=== PATIENT | female | born 1975 | race Caucasian/White ===

== ENCOUNTER 2016-07-11 12:48 | Emergency (ER) | payer OTHER ==
[2016-07-11] MEDS ORDERED: oxyCODONE/Acetamin 5/325 MG* TAB PO ONE (13:33)
--- NOTE | 2016-07-11 14:14 | RAD ---
Indication: RIGHT shoulder pain post fall. Comparison: None. Technique: Internal and external rotation AP and scapular Y views RIGHT shoulder Report: Normal acromioclavicular and glenohumeral joint alignment. Moderate osteophytosis at the common clavicular joint directed inferiorly. Dorsal AC joint capsular hypertrophy noted. Negative for fracture. Unremarkable soft tissue contours. IMPRESSION: No traumatic injury evident. AC joint osteoarthritis.
--- NOTE | 2016-07-11 14:46 | ED ---
Kim Grissom Matthew, scribed for Richard Couch MD on 07/11/16 at 1336 . Upper Extremity Pain - HPI Summary HPI Summary: A 41 y/o female presents to the ED with right shoulder pain since 30 minutes ago. The patient states that she tripped down a wooden indoor staircase and fell down approximately 24 stairs. Associated symptoms include right hip ecchymosis and nausea. The patient denies any other pain, head trauma, LOC, chest pain, abdominal pain, back pain, vomiting, numbness, and neck pain. The patient's pain worse with movement. SHx includes total left knee replacement in 2010. The patient did not take any medication S[employer]. - History of Current Complaint Chief Complaint: EDExtremityUpper Stated Complaint: RIGHT SHOULDER FALL DOWN 24 STAIRS Time Seen by Provider: 07/11/16 13:22 Hx Obtained From: Patient Hx Last Menstrual Period: 05/12/16 Mechanism Of Injury: Fall From Height Of: - 24 stairs Onset/Duration: Started Minutes Ago - ~30 minutes ago, Traumatic, Still Present Timing: Constant Severity Initially: Moderate Severity Currently: Moderate Pain Location: Shoulder - RT Aggravating Factor(s): Movement Alleviating Factor(s): Nothing Associated Signs & Symptoms: Positive: Bruising - right hip, Nausea. Negative: Weakness, Numbness/Tingling, Chest Pain, Back Pain, Neck Pain, Vomiting - Allergies/Home Medications Allergies/Adverse Reactions: Allergies Allergy/AdvReac Type Severity Reaction Status Date / Time Bee Venom Allergy Severe Anaphylatic Verified 07/11/16 13:01 Shock Squid Oil Allergy Anaphylatic Verified 07/11/16 13:01 Shock PMH/Surg Hx/FS Hx/Imm Hx Endocrine/Hematology History: Denies: Hx Diabetes, Hx Thyroid Disease Cardiovascular History: Denies: Hx Congestive Heart Failure, Hx Deep Vein Thrombosis, Hx Hypertension , Hx Myocardial Infarction, Hx Pacemaker/ICD Respiratory History: Denies: Hx Asthma, Hx Chronic Obstructive Pulmonary Disease (COPD), Hx Lung Cancer, Hx Pneumonia, Hx Pulmonary Embolism GI History: Denies: Hx Gall Bladder Disease, Hx Gastrointestinal Bleed, Hx Ulcer, Hx Urosepsis History: Denies: Hx Kidney Stones, Hx Renal Disease Neurological History: Denies: Hx Dementia, Hx Migraine, Hx Seizures, Hx Transient Ischemic Attacks (TIA) Psychiatric History: Reports: Hx Anxiety Denies: Hx Depression, Hx Schizophrenia, Hx Bipolar Disorder - Surgical History Surgery Procedure, Year, and Place: Left Total Knee replacement and Arthroplasty , 2012, [facility]. 2 2004 and 2009 Infectious Disease History: No Infectious Disease History: Denies: Hx Clostridium Difficile, Hx Hepatitis, Hx Human Immunodeficiency Virus (HIV), Hx of Known/Suspected MRSA, Hx Shingles, Hx Tuberculosis, Hx Known/ Suspected VRE, Hx Known/Suspected VRSA, History Other Infectious Disease, Traveled Outside the [place] in Last 30 Days - Family History Known Family History: Positive: Other - ANX - Social History Alcohol Use: None Substance Use Type: Reports: Prescribed Substance Use Comment - Amount & Last Used: klonopin 0.5 mg at bedtime Smoking Status (MU): Former Smoker Type: Cigarettes Amount Used/How Often: occasional Have You Smoked in the Last Year: Yes Review of Systems Constitutional: Negative Eyes: Negative ENT: Negative Cardiovascular: Negative Negative: Chest Pain Respiratory: Negative Positive: Nausea. Negative: Abdominal Pain, Vomiting Genitourinary: Negative Positive: Myalgia - RT shoulder Positive: Bruising - RT Hip Neurological: Negative Negative: Weakness, Numbness Psychological: Normal All Other Systems Reviewed And Are Negative: Yes Physical Exam - Summary Physical Exam Summary: The patient is well-nourished in no acute distress and in no acute pain. The skin is warm and dry and skin color reflects adequate perfusion. HEENT: The head is normocephalic and atraumatic. The pupils are equal and reactive. The conjunctivae are clear and without drainage. Nares are patent and without drainage. Mouth reveals moist mucous membranes and the throat is without erythema and exudate. The external ears are intact. The ear canals are patent and without drainage. The tympanic membranes are intact. No scott sign, no raccoon sign, or no hemotympanum. Neck is supple with full range of motion and non-tender. There are no carotid bruits. There is no neck vein distension.The patient does not have reproducible neck pain. Respiratory: Chest is non-tender with no rib tenderness. Lungs are clear to auscultation and breath sounds are symmetrical and equal. Cardiovascular: Heart is regular rate and rhythm. There is no murmur or rub auscultated. There is no peripheral edema and pulses are symmetrical and equal. Abdomen: The abdomen is soft and non-tender. There are normal bowel sounds heard in all four quadrants and there is no organomegaly palpated. Musculoskeletal: There is no back pain noted. There is good capillary refill. There is no calf tenderness elicited. No tenderness of the clavicles bilaterally. No thoracic-lumbar spinal tenderness noted. Tenderness in the right femur, No KEN of the right hip, no knee effusion, good pulses distally. The right arm has marked tenderness in the right humorous, no crepitus, no deformities, good pulses distally, neurovascular intact distally as well. No reproducible pain over hand wrist , elbow, or forearm Neurological: Patient is alert and oriented to person, place and time. The patient has symmetrical motor strength in all four extremities. Cranial nerves are grossly intact. Deep tendon reflexes are symmetrical and equal in all four extremities. Psychiatric: The patient has an appropriate affect and does not exhibit any anxiety or depression. Triage Information Reviewed: Yes Vital Signs On Initial Exam: Initial Vitals Temp Pulse Resp BP Pulse Ox 98.3 F 78 20 117/69 100 07/11/16 12:50 07/11/16 12:50 07/11/16 12:50 07/11/16 12:50 07/11/16 12:50 Vital Signs Reviewed: Yes Diagnostics - Vital Signs Vital Signs Temp Pulse Resp BP Pulse Ox 07/11/16 12:50 98.3 F 78 20 117/69 100 - Laboratory Lab Statement: Any lab studies that have been ordered have been reviewed, and results considered in the medical decision making process. - Radiology RT Shoulder XR Xray Interpretation: No Acute Changes - IMPRESSION: No traumatic injury evident. AC joint osteoarthritis. Radiology Interpretation Completed By: Radiologist Course/Dx - Course Assessment/Plan: A 41 y/o female presents to the ED with right shoulder pain since 30 minutes ago after falling down approximately 24 stairs. The patient denies any other pain, head trauma, LOC, chest pain, abdominal pain, back pain, vomiting, numbness, and neck pain. RT shoulder XR shows no traumatic injury evident. The patient will be discharged home and follow-up with her PCP. - Diagnoses Differential Diagnosis/HQI/PQRI: Positive: Contusion, Fracture (Closed), Other - dislocation, a/c separation, rotator cuff injury Provider Diagnoses: Shoulder contusion Discharge - Discharge Plan Condition: Stable Disposition: HOME Prescriptions: oxyCODONE/Acetamin 5/325 MG* [Percocet 5/325 TAB*] 1 tab PO Q6H PRN #20 tab MDD 4 PRN Reason: pain Patient Education Materials: Oxycodone/Acetaminophen (By mouth), Contusion in Adults (ED) Referrals: Cheri Burden MD [Medical Doctor] - 4 Days Additional Instructions: Please follow-up with Dr. Burden in 4 days. The documentation as recorded by the Kim palomo Matthew accurately reflects the service I personally performed and the decisions made by , Richard Couch MD.
[2016-07-11 14:53] VITALS: BP 114/67
== END 2016-07-11 14:52 | disposition home or self-care (01) ==
LOC: ED 12:48
DX: S40.011A Contusion of right shoulder, initial encounter (principal); M25.511 Pain in right shoulder; S70.01XA Contusion of right hip, initial encounter; W10.9XXA Fall (on) (from) unspecified stairs and steps, initial encounter; Y93.9 Activity, unspecified; Y92.9 Unspecified place or not applicable; Y99.9 Unspecified external cause status; R11.0 Nausea
CPT/HCPCS: 99283; A9270-GY

== ENCOUNTER 2016-08-13 06:27 | Day surgery (SDC) | payer OTHER ==
[~2016-08-13 06:27] MED LIST: Buffered Lidocaine 1% SYR 3ML* 3 ML/SYR SYRINGE INTRADERM ONE; Famotidine IV* 10 MG/ML 2 ML (20 mg) IV ONE; Gabapentin CAP(*) 300 MG PO ONE; celeCOXIB CAP* 200 MG PO ONE
[2016-08-13] MEDS ORDERED: celeCOXIB CAP* 100 MG ONE (06:28)
[2016-08-13] MEDS ORDERED: Gabapentin CAP(*) 300 MG ONE (06:28)
[2016-08-13] MEDS ORDERED: Famotidine IV* 10 MG/ML 2 ML (20 mg) ONE (06:28)
[2016-08-13] MEDS ORDERED: ceFAZolin 2 GM PREMIX (*) 2 GM/50 ML BAG IVPB ONE (06:28)
[2016-08-13 06:31] LABS: Manual Entry Verification CAR0052; UR Preg Internal Control QC Line Present; UR Preg Kit Lot# 6060104
[2016-08-13] MEDS ORDERED: Ondansetron INJ* 2 MG/ML VIAL ONE ×2 (07:00→11:53)
[2016-08-13] MEDS ORDERED: Ketorolac INJ* 30 MG/ML 1 ML VIAL ONE (07:00)
[2016-08-13] MEDS ORDERED: ROPIVACAINE 5 MG/ML 30 ML BTL (0.5%) ONE (07:00)
[2016-08-13] MEDS ORDERED: Dexamethasone IV* 4 MG/ML 1 ML (4 MG) ONE (07:00)
[2016-08-13] MEDS ORDERED: Lidocaine 2% PF * 5 ML VIAL ONE ×2 (07:00→07:49)
[2016-08-13] MEDS ORDERED: Propofol* 10 MG/ML 20 ML BTL IV PUSH ONE ×2 (07:00→07:49)
[2016-08-13] MEDS ORDERED: fentaNYL* 50 MCG/ML 5 ML VIAL (250 MCG VIAL) ONE (07:01)
[2016-08-13] MEDS ORDERED: Midazolam* 1 MG/ML 5 ML VIAL (5 MG) ONE (07:01)
[2016-08-13] MEDS ORDERED: Rocuronium* 10 MG/ML VIAL ONE (07:01)
[2016-08-13] MEDS ORDERED: KETAMINE HCL* 50 MG/ML 10 ML VIAL ONE ×2 (07:01→07:49)
[2016-08-13] MEDS ORDERED: EPINEPHrine AMP 1 MG/ML ONE (07:11)
[2016-08-13] MEDS ORDERED: Bupivacaine 0.5% W/EPI SDV* 30 ML VIAL ONE (08:21)
[2016-08-13] MEDS ORDERED: fentaNYL* 50 MCG/ML 2 ML VIAL (100 MCG VIAL) IV PRN (08:59)
[2016-08-13] MEDS ORDERED: oxyCODONE/Acetamin 5/325 MG* TAB PO PRN (08:59)
[2016-08-13] MEDS ORDERED: Ondansetron INJ* 2 MG/ML VIAL IV PRN (08:59)
[2016-08-13] MEDS ORDERED: DiMENhydriNATE IV* 50 MG/ML VIAL IV PUSH PRN (08:59)
[2016-08-13] MEDS ORDERED: HYDROmorphone INJ* 1 MG/ML CARPUJECT SYRINGE IV PRN (08:59)
[2016-08-13] MEDS ORDERED: HYDROmorphone INJ* 1 MG/ML CARPUJECT SYRINGE ONE (09:28)
[2016-08-13] MEDS ORDERED: DiMENhydriNATE IV* 50 MG/ML VIAL ONE (11:54)
[2016-08-13] MEDS ORDERED: fentaNYL* 50 MCG/ML 2 ML VIAL (100 MCG VIAL) ONE (12:53)
[2016-08-13 13:47] VITALS: BP 123/78
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
== END 2016-08-13 14:10 | disposition home or self-care (01) ==
LOC: OR 06:27
PROVIDERS: ATTEND Orthopaedic Surgery
DX: S46.011A Strain of muscle(s) and tendon(s) of the rotator cuff of right shoulder, initial encounter (principal); M75.41 Impingement syndrome of right shoulder; M19.011 Primary osteoarthritis, right shoulder; F17.210 Nicotine dependence, cigarettes, uncomplicated; W10.9XXA Fall (on) (from) unspecified stairs and steps, initial encounter; Y92.009 Unspecified place in unspecified non-institutional (private) residence as the place of occurrence of the external cause
CPT/HCPCS: 81025; A9270-GY; J0171; J0690; J1100; J1170; J1240; J1885; J2250; J2405; J2704; J2795; J3010

== ENCOUNTER 2016-10-23 07:26 | Emergency (ER) | payer OTHER ==
[2016-10-23 07:44] VITALS: BP 107/68
--- NOTE | 2016-10-23 09:04 | UC ---
Marlena Grissom Auryana, scribed for [facility] on 10/23/16 at 0840 . Complaint Female HPI - HPI Summary HPI Summary: IN ROOM NOTE: 41 year old female presents with central suprapubic abdominal pressure over the bladder that has become progressively worse. She also has pain with intercourse and decreased urine output with increased pressure over the bladder - sharp, "shooting" pains that radiate down the sides. She reports previous low back pain but denies any now. She denies any fever, chills, dysuria, burning with urination, or any vaginal discharge/bleeding. She states normal eating and drinking habits. She has had 2 prior episodes of U.T.I. with cipro treatment - tolerated well. PMHx is significant for miscarriage x2 (most recent - last year - Dr. Braswell- reports possibility of "slanted uterus"- pelvic exam 7 months ago), anxiety, and PTSD. No prior hospitalizations for any pulmonary, cardiac, or urology problems. FHx is significant for lung cancer. She reports marijuana use for PTSD and anxiety. She denies any tobacco use. 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 MD NOTE: Vital signs stable, pulse ox 100, 3/10 abdominal and lower back discomfort. Patient visit history notes U.T.I. on 10/12/16 but is otherwise none contributory to current complaint. Patient was on 3 days of Cipro 500 mg BID. NURSES NOTE: WAS SEEN HERE ON October TREATED FOR UTI WITH CIPRO. STATES STILL HAVING "STRANGE PRESSURE" IN ABDOMEN, AND LOWER BACK. HURTS IN PELVIS AREA WHEN COUGHING. HAS BEEN URINATING MORE FREQUENTLY THAN USUAL BUT LESS THAN WHEN SHE WAS HERE ON THE . DENIES ANY DISCHARGE. - History Of Current Complaint Chief Complaint: UCGU Stated Complaint: UTI SYMPTOMS Time Seen by Provider: 10/23/16 07:57 Hx Obtained From: Patient Hx Last Menstrual Period: 10/03/16 Onset/Duration: Gradual Onset, Still Present Timing: Constant Severity Initially: Mild Severity Currently: Mild Pain Intensity: 3 Pain Scale Used: 0-10 Numeric Radiates to: down the sides of her ABD Character: Sharp - and shooting Aggravating Factor(s): Marianna - pain with intercourse Associated Signs And Symptoms: Negative: Fever, Back Pain - none now but reports previously, Vaginal Bleeding/Discharge, Vaginal Discharge, Nausea, Vomiting(# Of Episodes =) Related Hx: Similar Episode/Dx as: - SEE HPI - Allergies/Home Medications Allergies/Adverse Reactions: Allergies Allergy/AdvReac Type Severity Reaction Status Date / Time Bee Venom Allergy Severe Anaphylatic Verified 08/13/16 06:41 Shock Squid Oil Allergy Severe Anaphylatic Verified 08/13/16 06:41 Shock PMH/Surg Hx/FS Hx/Imm Hx - Additional Past Medical History Additional PMH: U.T.I., miscarriage x2 Endocrine History Of: Denies: Diabetes, Thyroid Disease, Hyperthyroidism, Hypothyroidism, Dyslipidemia Cardiovascular History Of: Denies: Cardiac Disorders, Hypertension, Pacemaker/ICD, Myocardial Infarction , Congestive Heart Failure, Atrial Fibrillation, Deep Vein Thrombosis, Bleeding Disorders Respiratory History Of: Denies: COPD, Asthma, Bronchitis, Pneumonia, Pulmonary Embolism GI/ History Of: Denies: Gastroesophageal Reflux, Ulcer, Gastrointestinal Bleed, Gall Bladder Disease, Kidney Stones, Diverticulitis, Renal Disease, Urosepsis Neurological History Of: Denies: TIA, CVA, Dementia, Seizures, Migraine Psychological History Of: Reports: Anxiety, Post Traumatic Stress Disorder Denies: Depression, Bipolar Disorder, Schizophrenia Cancer History Of: Denies: Lung Cancer, Colorectal Cancer, Breast Cancer, Prostate Cancer, Cervical Cancer - Surgical History Surgical History: Yes Surgery Procedure, Year, and Place: LEFT KNEE ARTHROSCOPY- 1988- [place]. LEFT KNEE ARTHROSCOPY- 2001, 2005- [place]. Left Total Knee replacement and Arthroplasty, 2011, [facility]. 2004 and 2009. ROTATOR CUFF RIGHT- AUGUST 2016 - Family History Known Family History: Positive: Other - LUNG CANCER - Social History Occupation: Employed Full-time Lives: With Family - Alcohol Use: None Substance Use Type: Marijuana, Prescribed Substance Use Comment - Amount & Last Used: klonopin 0.5 mg at bedtime, OCCASIONAL MARIJUANA USE-10/23/16 Smoking Status (MU): Former Smoker Type: Cigarettes Amount Used/How Often: APPROX 5 CIGS/DAY FOR 4 YRS Have You Smoked in the Last Year: No When Did the Patient Quit Smoking/Using Tobacco: 2001 Household Exposure Type: Cigarettes - Immunization History Most Recent Influenza Vaccination: 04/2014 Most Recent Tetanus Shot: 2011 Review of Systems Constitutional: Negative Skin: Negative Eyes: Negative ENT: Negative Respiratory: Negative Cardiovascular: Negative Gastrointestinal: Negative Genitourinary: Other - DECREASED OUTPUT, PRESSURE OVER BLADDER/SUPRAPUBIC, PAIN WITH INTERCOURSE Motor: Negative Neurovascular: Negative Musculoskeletal: Negative Neurological: Negative Psychological: Negative All Other Systems Reviewed And Are Negative: Yes Physical Exam Triage Information Reviewed: Yes Appearance: Well-Appearing, No Pain Distress, Well-Nourished Vital Signs: Initial Vital Signs Temp 97.9 F 10/23/16 07:37 Pulse 86 10/23/16 07:37 Resp 18 10/23/16 07:37 BP 107/68 10/23/16 07:37 Pulse Ox 100 10/23/16 07:37 Vital Signs Reviewed: Yes Eyes: Positive: Conjunctiva Clear ENT: Positive: Hearing grossly normal, Pharynx normal, TMs normal Neck: Positive: Supple, Nontender, No Lymphadenopathy Respiratory: Positive: Chest non-tender, Lungs clear, Normal breath sounds, No respiratory distress Cardiovascular: Positive: RRR, No Murmur Abdomen Description: Positive: Nontender, No Organomegaly, Soft, Other: - MILD BLADDER DISCOMFORT WITH PALPATION. Negative: CVA Tenderness (R), CVA Tenderness (L) Bowel Sounds: Positive: Present Musculoskeletal: Positive: Strength Intact, Other: - QUIÑONES Neurological: Positive: Alert Psychological: Positive: Age Appropriate Behavior Complaint Female Dx - Course Course Of Treatment: 41 year old female returns for bladder discomfort. She denies vaginal discharge. Previous pelvic exam 7 month ago s/p miscarriage. She understands that further work up is most should be done with [facility] Her UA shows trace blood - no CVA tenderness- and is WBC negative. This could be a resolving U.T.I. or an intrinsic condition of bladder itself requiring urology follow up. I discussed this possibility with the patient. Will start her on Cipro for 7 days. Patient understands she might need an ultrasound to diagnose her problem if discomfort doesn't resolve. All medications in chart were reviewed. - Differential Dx/Diagnosis Differential Diagnosis/HQI/PQRI: Urinary Tract Infection, Other - pyelonephritis ; cystitis from non-infectious cause Provider Diagnoses: URINARY TRACT INFECTION Discharge - Discharge Plan Condition: Stable Disposition: HOME Prescriptions: Ciprofloxacin TAB* [Cipro Tab*] 500 mg PO BID #14 tab MDD 2 Patient Education Materials: Urinary Tract Infection in Women (ED) Referrals: Ramirez PETE,Amr [Primary Care Provider] - Additional Instructions: Thank you for completing our My[employer] survey. WE DISCUSSED: This feeling could be a not yet fully resolved BLADDER INFECTION. It could also be related to a bladder condition that might require looking into the bladder by a urologist. If this condition persists after this round of antibiotic treatment, call your doctor for referral to UROLOGY. [facility] or your woodworking shop laborer can also follow up on any further testing to vaginal discharge or bleeding. An ultrasound might be useful at that time. Call us for any questions or concerns. The documentation as recorded by the Marlena palomo Auryana accurately reflects the service I personally performed and the decisions made by me, Prashanth Aguirre MD.
== END 2016-10-23 08:43 | disposition home or self-care (01) ==
LOC: UCEAST 07:26
DX: N39.0 Urinary tract infection, site not specified (principal); B96.89 Other specified bacterial agents as the cause of diseases classified elsewhere
CPT/HCPCS: 81003; 99212; G0463

== ENCOUNTER 2018-03-05 07:37 | Emergency (ER) | payer OTHER ==
--- OUTSIDE RECORDS SUMMARY | 2018-03-05 07:44 | XMS REPORT ---
:1975 External Reference #:[id number] Author Organization [employer] Address [address] [place] [place] [address] Phone [phone] Care Team Providers Name Role Phone Bill Guzmán MD Primary Care Physician Unavailable Payers Type Date Identification Numbers Payment Provider Subscriber Commercial Policy Number: [id number] Tha Andersen PayID: [id number] [address] [place] [address] Commercial Effective: 2016 Policy Number: [id number] Tha Andersen Expires: 2018 Group Number: [id number] [address] PayID: [id number] [place] [address] Medigap Part B Expires: 2018 Policy Number: [id number] Medicaid Jazmin Andersen Group Name: 1 1 [address] PayID: [id number] [place] [address] Problems Description No Information Social History Type Date Description Comments Smoking Patient has never smoked Allergies, Adverse Reactions, Alerts Date Description Reaction Status Severity Comments 01/27/2017 NKDA active Medications Medication Date Status Form Strength Qnty SIG Indications Ordering Provider Bupropion HCL Active Tablets ER 150mg 1 by Unknown ER (SR) 000 12HR mouth every day Clonazepam 0 Active Tablets 0.5mg Unknown 000 Oxycontin Hx Tab ER 12H 10mg 6tabs take 1 by Irvin Miles - Abuse-Det mouth two Debby, times a MD Miles day. Do not take with clonazepa m. Keflex Hx Capsules 500mg 21caps take 1 Irvin Miles - tab by Debby, mouth 3 MD Miles times a day x 7 days until finished. Aspirin Ec Hx Tablets DR 325mg 30tabs take 2 Irvin Alva 017 - tabs by Debby, mouth MD Miles every day x 14 days. with food. Percocet Hx Tablets 5-325mg 45tabs 1 tabs by Irvin Miles - mouth Debby, every 4 MD Miles hours as needed do not fill until 09/02/16 Shower Chair Hx Shower Irvin Miles - chair Debby, MD Miles Naproxen Hx Tablets 500mg 90tabs 1 po bid S46.011A Irvin Alva 017 - prn pain Debby, MD Miles Medications Administered in Office Medication Date Status Form Strength Qnty SIG Indications Ordering Provider Depomedrol Administered Injection Irvin Alva 40MG Akosua Guardado MD Vital Signs Date Vital Result Comment 02/16/2018 Height 71 inches 5'11" Heart Rate 89 /min BP Systolic 122 mmHg BP Diastolic 82 mmHg Respiratory Rate 18 /min Pain Level 8 01/03/2018 Height 71 inches 5'11" Weight 230.00 lb Heart Rate 76 /min BP Systolic 138 mmHg BP Diastolic 76 mmHg Respiratory Rate 12 /min Pain Level 6 BMI (Body Mass Index) 32.1 kg/m2 07/19/2017 Height 71 inches 5'11" Heart Rate 73 /min BP Systolic 126 mmHg BP Diastolic 78 mmHg Respiratory Rate 16 /min Body Temperature 97.7 F Pain Level 5 01/27/2017 Height 71 inches 5'11" Weight 220.00 lb BP Systolic 118 mmHg BP Diastolic 72 mmHg Respiratory Rate 16 /min Pain Level 3 BMI (Body Mass Index) 30.7 kg/m2 12/16/2016 Height 71 inches 5'11" Weight 220.00 lb Heart Rate 83 /min Respiratory Rate 16 /min Pain Level 4 BMI (Body Mass Index) 30.7 kg/m2 11/02/2016 Height 71 inches 5'11" Weight 220.00 lb Heart Rate 73 /min BP Systolic 108 mmHg BP Diastolic 69 mmHg Respiratory Rate 15 /min Body Temperature 97.8 F Pain Level 4 BMI (Body Mass Index) 30.7 kg/m2 09/21/2016 Height 71 inches 5'11" Weight 220.00 lb Heart Rate 76 /min BP Systolic 138 mmHg BP Diastolic 80 mmHg Respiratory Rate 16 /min Pain Level 5 BMI (Body Mass Index) 30.7 kg/m2 09/13/2016 Height 71 inches 5'11" Weight 220.00 lb Heart Rate 76 /min BP Systolic 130 mmHg BP Diastolic 87 mmHg Respiratory Rate 16 /min BMI (Body Mass Index) 30.7 kg/m2 08/24/2016 Height 71 inches 5'11" Weight 220.00 lb BP Systolic 120 mmHg BP Diastolic 78 mmHg Respiratory Rate 16 /min BMI (Body Mass Index) 30.7 kg/m2 08/03/2016 Height 71 inches 5'11" Weight 220.00 lb Heart Rate 72 /min Respiratory Rate 18 /min Pain Level 4 BMI (Body Mass Index) 30.7 kg/m2 07/13/2016 Height 71 inches 5'11" Weight 220.00 lb Heart Rate 64 /min BP Systolic 118 mmHg BP Diastolic 74 mmHg Respiratory Rate 14 /min Pain Level 7 BMI (Body Mass Index) 30.7 kg/m2 Results Test Date Test Result H/L Range Note Laboratory test finding 08/13/2016 (HCG) Urine Negative Negative 1 1 If is still suspected, please repeat test after 48 to 72 hours. This test detects intact HCG only and is indicated for the early detection of . Procedures Date CPT Code Description Status 07/19/2017 59707 Inject/Drain Joint/Bursa Major W/O US Completed 08/13/2016 33160 Arthroscopy Shoulder,W/Rotator Cuff Repair Completed 08/13/2016 09574 Arthroscopy Shoulder,W/Rotator Cuff Repair Completed 08/13/2016 58898 Arthroscopy,Shoulder Decompression Of Subacromial Space Completed W/Acromio 08/13/2016 06458 Arthroscopy,Shoulder Decompression Of Subacromial Space Completed W/Acromio 08/13/2016 69634 Arthroscopy,Shoulder,Distal Claviculectomy Incl Dist Completed Articular SR 08/13/2016 92293 Arthroscopy,Shoulder,Distal Claviculectomy Incl Dist Completed Articular SR Encounters Type Date Location Provider CPT E/M Dx Office Visit 01/03/2018 [facility], [address]19 M75.52 1:30p Alison PETE M75.22 S46.012D G56.01 M75.42 Office Visit 07/19/2017 9:00a [facility], [address]3464 M75.52 Alison PETE S46.112A M75.22 Office Visit 01/27/2017 8:00a [facility] 16481 S46.011D Of Alison Guaraddo MD Office Visit 12/16/2016 11:30a [facility] 28490 S46.011D Of [facility] Guardado MD M75.41 Office Visit 09/13/2016 1:00p [facility] 02581 M77.12 Of Alison Guardado MD Office Visit 08/03/2016 8:15a [facility] 68980 S46.011D Of [facility] Guardado MD M75.41 Office Visit 07/13/2016 9:30a [facility] 19385 S46.011A Of [facility] Guardado MD M75.41 Plan of Care Future Appointment(s):03/30/2018 8:30 am - Irvin Guardado MD at [facility].02/16/2018 - Irvin Guardado, MDM75.52 Bursitis of left shoulderFollow up:Follow up: 6 vbnnmC44.22 Bicipital tendinitis, left ziltpvfoM71.012D Strain of musc/tend the rotator cuff of left shoulder, subs
[2018-03-05 07:53] VITALS: BP 124/61
--- NOTE | 2018-03-05 08:13 | UC ---
Lower Extremity/Ankle HPI - HPI Summary HPI Summary: right ankle pain for several years after a prior injury. It has worsened over the past weeks insidiously. There has been some popping and swelling and throbbing. NO new trauma. No redness and not hot. She has an appt with Dr. Hilliard in 1-2 weeks. Naproxen has helped. No prior gout. - History of Current Complaint Chief Complaint: UCLowerExtremity Stated Complaint: RIGHT ANKLE COMPLAINT Time Seen by Provider: 03/05/18 07:54 Hx Obtained From: Patient Hx Last Menstrual Period: 03/02/18 ?: No Onset/Duration: Gradual Onset, Lasting Weeks Severity Initially: Mild Severity Currently: Moderate Pain Intensity: 7 Aggravating Factor(s): Standing, Ambulation Alleviating Factor(s): Rest, Elevation, OTC Meds Able to Bear Weight: Yes - Allergies/Home Medications Allergies/Adverse Reactions: Allergies Allergy/AdvReac Type Severity Reaction Status Date / Time bee venom protein (honey bee) Allergy Anaphylatic Verified 03/05/18 07:47 Shock squid Allergy Anaphylatic Verified 03/05/18 07:47 Shock Home Medications: Home Medications Naproxen TAB* [Naprosyn 250 mg TAB*] 500 mg PO Q12H PRN 03/05/18 [History Confirmed 03/05/18] PMH/Surg Hx/FS Hx/Imm Hx Previously Healthy: No - prior orthopedic disease. - Surgical History Surgical History: Yes Surgery Procedure, Year, and Place: LEFT KNEE ARTHROSCOPY- 1988- [place]. LEFT KNEE ARTHROSCOPY- 2001, 2005- [place]. Left Total Knee replacement and Arthroplasty, 2011, [facility]. 2004 and 2009. ROTATOR CUFF RIGHT- AUGUST 2016 - Family History Known Family History: Positive: None, Other - LUNG CANCER - Social History Occupation: Employed Full-time Alcohol Use: None Substance Use Type: Marijuana, Prescribed Substance Use Comment - Amount & Last Used: Occasional Marijuana Smoking Status (MU): Former Smoker Type: Cigarettes Amount Used/How Often: APPROX 5 CIGS/DAY FOR 4 YRS Have You Smoked in the Last Year: No When Did the Patient Quit Smoking/Using Tobacco: 1999 Household Exposure Type: Cigarettes - Immunization History Most Recent Influenza Vaccination: 04/2014 Most Recent Tetanus Shot: 2011 Review of Systems Constitutional: Negative Skin: Negative Neurovascular: Negative Musculoskeletal: Arthralgia All Other Systems Reviewed And Are Negative: Yes Physical Exam Triage Information Reviewed: Yes Appearance: Well-Nourished, Obese Vital Signs: Initial Vital Signs Temp 97.9 F 03/05/18 07:45 Pulse 62 03/05/18 07:45 Resp 16 03/05/18 07:45 BP 124/61 03/05/18 07:45 Pulse Ox 99 03/05/18 07:45 Vital Signs Reviewed: Yes Eyes: Positive: Conjunctiva Clear ENT: Positive: Normal ENT inspection, Pharynx normal Neck: Negative: Nuchal Rigidity Respiratory: Positive: No respiratory distress, No accessory muscle use. Negative: Respiratory distress Cardiovascular: Positive: Brisk Capillary Refill Abdomen Description: Negative: Distended Musculoskeletal Exam: Other - right ankle soft tissue swelling and joint swelling. No yoel tenderness or tenderness of the achilles. Neg heel sqeeze. Talar tilt and anterior drawer good endpoints. Toe raise and heel raise intact and no loss of strength. Neurological: Positive: Alert, Muscle Tone Normal. Negative: Fatigued Psychological: Positive: Age Appropriate Behavior Skin Exam: Normal Skin: Negative: rashes Lower Extremity Course/Dx - Course Course Of Treatment: We discussed x rays versus more conservative treatment in preparation for Orthopedic visit. She may be shawn served with MRI as exam suggests soft tissue disease. - Differential Dx/Diagnosis Differential Diagnosis/HQI/PQRI: Arthritis, Bursitis, Cellulitis, Contusion, Dislocation, Fracture (Closed), Gout, Infection, Osteomyelitis, Septic Arthritis , Sprain, Strain, Tendonitis, Tenosynovitis Provider Diagnoses: right ankle pain Discharge - Sign-Out/Discharge Documenting (check all that apply): Patient Departure All imaging exams completed and their final reports reviewed: No Studies - Discharge Plan Condition: Good Disposition: HOME Prescriptions: Naproxen [Naproxen 500 mg tab] 500 mg PO BID #40 tablet. Patient Education Materials: Arthralgia (ED), Swollen Joint (ED) Referrals: Ramirez PETE,[facility] [Primary Care Provider] - Jarrod Hilliard DO [Doctor of Osteopathy] - - Billing Disposition and Condition Condition: GOOD Disposition: Home
== END 2018-03-05 08:21 | disposition home or self-care (01) ==
LOC: UCCORT 07:37
DX: M25.571 Pain in right ankle and joints of right foot (principal); Z87.891 Personal history of nicotine dependence
CPT/HCPCS: 99212; G0463

== ENCOUNTER 2018-11-10 10:39 | Emergency (ER) | payer OTHER ==
--- OUTSIDE RECORDS SUMMARY | 2018-11-10 10:53 | XMS REPORT | Continuity of Care Document ---
:1975 External Reference #:[id number] Author Name Roma Cantu Care Team Providers Name Role Phone Ashlie Lambert MD Primary Care Physician Unavailable Payers Date Identification Numbers Payment Provider Subscriber Expires: 2018 Policy Number: [id number] Medicaid Jazmin Andersen Group Name: 1 1 [address] PayID: [id number] [place] [address] Effective: 2018 Policy Number: [id number] Tha Andersen PayID: [id number] [address] [place] [id number] Expires: 2018 Policy Number: [id number] Tha Andersen PayID: [id number] [address] [place] [id number] Effective: 2016 Policy Number: [id number] Tha Andersen Expires: 2018 Group Number: [id number] [address] PayID: [id number] [place] [address] Effective: 2017 Policy Number: [id number] Medicaid Jazmin Andersen Expires: 2018 Group Name: 1 1 [address] PayID: [id number] [place] [address] Problems Active Problems Provider Date Antonia Ramirez MD Onset: 06/05/2018 Posttraumatic stress disorder Flaquito Ramirez MD Onset: 06/05/2018 Anxiety state Flaquito Ramirez MD Onset: 06/05/2018 Preoperative cardiovascular examination Flaquito Ramirez MD Onset: 06/05/2018 Disorder of shoulder Flaquito Ramirez MD Onset: 06/05/2018 Family History Date Family Member(s) Observation Comments Father due to Idiopathic pulmonary fibrosis () Social History Type Date Description Comments Sex Unknown Occupation Dental Hygienist Tobacco Use Start: Unknown Patient has never smoked Smoking Status Reviewed: 11/03/18 Patient has never smoked Allergies, Adverse Reactions, Alerts Active Allergies Reaction Severity Comments Date NKDA 01/27/2017 Bee Sting 06/05/2018 Squid 06/05/2018 Medications Active Medications SIG Qnty Indications Ordering Date Provider Bupropion Hydrochloride 1 by mouth every 60tabs Paras Leroy NP 09/19/2018 ER (SR) 12 hours 150mg Tablets ER 12HR Cyclobenzaprine HCL 1 tab by mouth 90tabs [facility] 08/26/2018 5mg three times a day MD Debby Tablets as needed for spasm Ibuprofen 1 tab by mouth 60tabs Mana Torres MD 08/24/2018 600mg Tablets three times a day Clonazepam as needed for 30tabs Mana Torres MD 08/09/2018 0.5mg Tablets sleep Percocet 1 -2 tabs by 45tabs [facility] 08/08/2018 5-325mg Tablets mouth every 4-6 MD Debby hours as needed pain Shower Bench 1units [facility] 06/12/2018 MD Debby Epinephrine 1 dose by Unknown 0.15mg/0.3ML injection route Solution Auto-Inject as directed. Ibuprofen 200 400-600mg every 6 Unknown 200mg Tablets hours as needed for pain. Medical Marijuana Unknown History Medications Keflex take 1 tab by 9caps [facility] 06/09/2018 - 500mg Capsules mouth 3 times a MD Debby 06/28/2018 day x 3 days until finished. Percocet 1 tabs by mouth 45tabs [facility] 06/09/2018 - 5-325mg Tablets every 4 - 6 MD Debby 08/03/2018 hours as needed for pain. Diclofenac Sodium take 1 by mouth 30tabs [facility] 05/06/2018 - 75mg twice a day as MD Debby 06/28/[address] needed for pain. Do not take with aleve Cyclobenzaprine HCL take 1 tab three 30tabs [facility] 05/06/2018 - 10mg times a day as MD Debby 06/04/2018 Tablets needed for pain/muscle spasms Oxycontin take 1 by mouth 6tabs Irvin 08/14/2016 - 10mg Tab ER 12H two times a day. MD Debby 09/04/2016 Abuse-Det Do not take with clonazepam. Keflex take 1 tab by 21caps Irvin 08/13/2016 - 500mg Capsules mouth 3 times a MD Debby 09/04/2016 day x 7 days until finished. Aspirin Ec take 2 tabs by 30tabs Irvin 08/13/2016 - 325mg Tablets DR mouth every day MD Debby 09/04/2016 x 14 days. with food. Percocet 1 tabs by mouth 45tabs Irvin 08/10/2016 - 5-325mg Tablets every 4 hours as MD Debby 09/04/2016 needed do not fill until 09/02/16 Shower Chair Shower chair Irvin 07/14/2016 - MD Debby 09/04/2016 Naproxen 1 po bid prn 90tabs S46.011 Irvin 07/13/2016 - 500mg Tablets pain A MD Debby 09/04/2016 Bupropion HCL ER (SR) 1 by mouth every 60tabs Ashlie Lambert MD - 150mg 12 hours 09/19/2018 Tablets ER 12HR Clonazepam prn Unknown - 0.5mg Tablets 08/03/2018 Medications Administered in Office Medication SIG Qnty Indications Ordering Provider Date Depomedrol 40MG Irvin Guardado MD 07/19/2017 Injection Vital Signs Date Vital Result Comment 11/03/2018 9:00am Height 70.0 inches 5'10" Weight 249.00 lb Heart Rate 74 /min BP Systolic 120 mmHg BP Diastolic 80 mmHg Body Temperature 98.6 F O2 % BldC Oximetry 97 % BMI (Body Mass Index) 35.7 kg/m2 08/03/2018 8:34am Height 70.0 inches 5'10" Weight 249.00 lb BP Systolic 122 mmHg BP Diastolic 84 mmHg Pain Level 0 BMI (Body Mass Index) 35.7 kg/m2 07/20/2018 8:43am Height 70.0 inches 5'10" Heart Rate 87 /min BP Systolic 138 mmHg BP Diastolic 82 mmHg Respiratory Rate 18 /min Body Temperature 98.1 F Pain Level 5 06/29/2018 9:10am Height 70.0 inches 5'10" Weight 249.00 lb Heart Rate 71 /min BP Systolic 120 mmHg BP Diastolic 78 mmHg Body Temperature 97.5 F O2 % BldC Oximetry 98 % BMI (Body Mass Index) 35.7 kg/m2 06/22/2018 9:08am Height 70.0 inches 5'10" Weight 248.00 lb BP Systolic 126 mmHg BP Diastolic 74 mmHg Body Temperature 98.8 F BMI (Body Mass Index) 35.6 kg/m2 06/05/2018 1:36pm Weight 248.00 lb Heart Rate 78 /min BP Systolic 128 mmHg BP Diastolic 80 mmHg Respiratory Rate 16 /min Body Temperature 98.8 F Pain Level 7 shoulder O2 % BldC Oximetry 97 % 05/11/2018 2:19pm Height 70 inches 5'10" Weight 220.00 lb Heart Rate 88 /min BP Systolic 128 mmHg BP Diastolic 78 mmHg Respiratory Rate 16 /min Body Temperature 98.8 F Pain Level 4 BMI (Body Mass Index) 31.6 kg/m2 05/02/2018 2:24pm Height 70 inches 5'10" Weight 220.00 lb Respiratory Rate 20 /min Body Temperature 97.6 F Pain Level 5 BMI (Body Mass Index) 31.6 kg/m2 02/16/2018 9:09am Height 71 inches 5'11" Heart Rate 89 /min BP Systolic 122 mmHg BP Diastolic 82 mmHg Respiratory Rate 18 /min Pain Level 8 01/03/2018 1:54pm Height 71 inches 5'11" Weight 230.00 lb Heart Rate 76 /min BP Systolic 138 mmHg BP Diastolic 76 mmHg Respiratory Rate 12 /min Pain Level 6 BMI (Body Mass Index) 32.1 kg/m2 07/19/2017 9:26am Height 71 inches 5'11" Heart Rate 73 /min BP Systolic 126 mmHg BP Diastolic 78 mmHg Respiratory Rate 16 /min Body Temperature 97.7 F Pain Level 5 01/27/2017 8:10am Height 71 inches 5'11" Weight 220.00 lb BP Systolic 118 mmHg BP Diastolic 72 mmHg Respiratory Rate 16 /min Pain Level 3 BMI (Body Mass Index) 30.7 kg/m2 12/16/2016 11:05am Height 71 inches 5'11" Weight 220.00 lb Heart Rate 83 /min Respiratory Rate 16 /min Pain Level 4 BMI (Body Mass Index) 30.7 kg/m2 11/02/2016 8:14am Height 71 inches 5'11" Weight 220.00 lb Heart Rate 73 /min BP Systolic 108 mmHg BP Diastolic 69 mmHg Respiratory Rate 15 /min Body Temperature 97.8 F Pain Level 4 BMI (Body Mass Index) 30.7 kg/m2 09/21/2016 8:03am Height 71 inches 5'11" Weight 220.00 lb Heart Rate 76 /min BP Systolic 138 mmHg BP Diastolic 80 mmHg Respiratory Rate 16 /min Pain Level 5 BMI (Body Mass Index) 30.7 kg/m2 09/13/2016 1:04pm Height 71 inches 5'11" Weight 220.00 lb Heart Rate 76 /min BP Systolic 130 mmHg BP Diastolic 87 mmHg Respiratory Rate 16 /min BMI (Body Mass Index) 30.7 kg/m2 08/24/2016 8:27am Height 71 inches 5'11" Weight 220.00 lb BP Systolic 120 mmHg BP Diastolic 78 mmHg Respiratory Rate 16 /min BMI (Body Mass Index) 30.7 kg/m2 08/03/2016 8:21am Height 71 inches 5'11" Weight 220.00 lb Heart Rate 72 /min Respiratory Rate 18 /min Pain Level 4 BMI (Body Mass Index) 30.7 kg/m2 07/13/2016 9:30am Height 71 inches 5'11" Weight 220.00 lb Heart Rate 64 /min BP Systolic 118 mmHg BP Diastolic 74 mmHg Respiratory Rate 14 /min Pain Level 7 BMI (Body Mass Index) 30.7 kg/m2 Results Test Date Facility Test Result H/L Range Note Comp Metabolic Panel 08/17/2018 [facility] Sodium 138 mmol/L N 135-145 [address] [place] [address] [phone] Potassium 5.0 mmol/L N 3.5-5.0 Chloride 103 mmol/L N 101-111 Co2 Carbon Dioxide 26 mmol/L N 22-32 Anion Gap 9 mmol/L N 2-11 Glucose 92 mg/dL N 70-100 Blood Urea Nitrogen 12 mg/dL N 6-24 Creatinine 0.61 mg/dL N 0.51-0.95 BUN/Creatinine Ratio 19.7 N 8-20 Calcium 9.1 mg/dL N 8.6-10.3 Total Protein 6.6 g/dL N 6.4-8.9 Albumin 4.1 g/dL N 3.2-5.2 Globulin 2.5 g/dL N 2-4 Albumin/Globulin Ratio 1.6 N 1-3 Total Bilirubin 0.40 mg/dL N 0.2-1.0 Alkaline Phosphatase 93 U/L N 34-104 Alt 10 U/L N 7-52 Ast 12 U/L Low 13-39 Egfr Non- 106.5 >60 Egfr 128.9 >60 1 CBC Auto Diff 08/17/2018 [facility] White Blood 9.5 10^3/uL N 3.5-10.[address] [place] [address] [phone] Red Blood Count 4.70 10^6/uL N 3.70-4.87 Hemoglobin 13.7 g/dL N 12.0-16.0 Hematocrit 40 % N 33-41 Mean Corpuscular Volume 86 fL N 80-97 Mean Corpuscular Hemoglobin 29 pg N 27-31 Mean Corpuscular HGB Conc 34 g/dL N 31-36 Red Cell Distribution Width 15 % N 10.5-15 Platelet Count 430 10^3/uL N 150-450 Mean Platelet Volume 7.7 fL N 7.4-10.4 Abs Neutrophils 6.0 10^3/uL N 1.5-7.7 Abs Lymphocytes 2.6 10^3/uL N 1.0-4.8 Abs Monocytes 0.7 10^3/uL N 0-0.8 Abs Eosinophils 0.2 10^3/uL N 0-0.6 Abs Basophils 0 10^3/uL N 0-0.2 Abs Nucleated RBC 0 10^3/uL Granulocyte % 63.2 % Lymphocyte % 27.0 % Monocyte % 7.7 % Eosinophil % 1.8 % Basophil % 0.3 % Nucleated Red Blood Cells % 0 Laboratory test 08/13/2016 [facility] (HCG) Negative N Negative [address] [place] [address] [phone] 1 Because ethnic data is not always readily available, this report includes an eGFR for both -Americans and non- Americans. The National Kidney Disease Education Program (NKDEP) does not endorse the use of the MDRD equation for patients that are not between the ages of 18 and 70, are , have extremes of body size, muscle mass, or nutritional status, or are non- or non-. According to the National Kidney Foundation, irrespective of diagnosis, the stage of the disease is based on the level of kidney function: Stage Description GFR(mL/min/1.73 m(2)) 1 Kidney damage with normal or decreased GFR 90 2 Kidney damage with mild decrease in GFR 60-89 3 Moderate decrease in GFR 30-59 4 Severe decrease in GFR 15-29 5 Kidney failure <15 (or dialysis) 2 If is still suspected, please repeat test after 48 to 72 hours. This test detects intact HCG only and is indicated for the early detection of . Procedures Date Code Description Status 06/09/2018 56946 Arthroscopy,Shoulder Decompression Of Subacromial Space Completed W/Acromio 06/09/2018 77675 Arthroscopy,Shoulder Decompression Of Subacromial Space Completed W/Acromio 06/09/2018 83026 Arthroscopy,Shoulder,Distal Claviculectomy Incl Dist Completed Articular SR 06/09/2018 63535 Arthroscopy,Shoulder,Distal Claviculectomy Incl Dist Completed Articular SR 06/09/2018 27045 Arthroscopy Shoulder Debridement Extensive Completed 06/09/2018 85117 Arthroscopy Shoulder Debridement Extensive Completed 06/09/2018 23180 Tenodesis Biceps Long Tendon Completed 06/09/2018 69241 Tenodesis Biceps Long Tendon Completed 07/19/2017 32371 Inject/Drain Joint/Bursa Major W/O US Completed 08/13/2016 05236 Arthroscopy Shoulder,W/Rotator Cuff Repair Completed 08/13/2016 67278 Arthroscopy Shoulder,W/Rotator Cuff Repair Completed 08/13/2016 48607 Arthroscopy,Shoulder Decompression Of Subacromial Space Completed W/Acromio 08/13/2016 56288 Arthroscopy,Shoulder Decompression Of Subacromial Space Completed W/Acromio 08/13/2016 91250 Arthroscopy,Shoulder,Distal Claviculectomy Incl Dist Completed Articular SR 08/13/2016 61837 Arthroscopy,Shoulder,Distal Claviculectomy Incl Dist Completed Articular SR Encounters Type Date Location Provider Dx Diagnosis Office Visit 07/20/2018 [facility] Alva M19.071 Primary 8:45a [facility] Of lAison Guardado MD osteoarthritis, right ankle and foot Office Visit 06/29/2018 [facility] Internal Ashlie Lambert MD G89.4 Chronic pain 9:00a Medicine - syndrome [place] F41.9 Anxiety disorder, unspecified F43.12 Post-traumatic stress disorder, chronic Office Visit 06/05/2018 1:00p [facility] Flaquito Ramirez M75.42 [facility] syndrome of left shoulder Z01.810 Encounter for preprocedural cardiovascular examination F41.9 Anxiety disorder, unspecified F43.12 Post-traumatic stress disorder, chronic G58.9 Mononeuropathy, unspecified Office Visit 05/11/2018 2:15p [facility] Irvin Arriaza75.42 [facility] MD Debby syndrome of left C.M.A. shoulder M75.52 Bursitis of left shoulder S46.012D Strain of musc/tend the rotator cuff of left shoulder, subs M19.012 Primary osteoarthritis, left shoulder Office Visit 05/02/2018 2:30p [facility] Irvin Rogel.52 Bursitis of Services Of MD Debby left shoulder C.M.A. M75.22 Bicipital tendinitis, left shoulder S46.012D Strain of musc/tend the rotator cuff of left shoulder, subs M75.42 Impingement syndrome of left shoulder Office Visit 02/16/2018 9:00a Anjelica Rogel.52 Bursitis of Services Of MD Debby left shoulder C.M.A. M75.22 Bicipital tendinitis, left shoulder S46.012D Strain of musc/tend the rotator cuff of left shoulder, subs M75.42 Impingement syndrome of left shoulder Office Visit 01/03/2018 1:30p [facility]opedic Irvin Rogel.Harini Bursitis of Services Of MD [place]by left shoulder C.M.A. M75.22 Bicipital tendinitis, left shoulder S46.012D Strain of musc/tend the rotator cuff of left shoulder, subs G56.01 Carpal tunnel syndrome, right upper limb M75.42 Impingement syndrome of left shoulder Office Visit 07/19/2017 9:00a Anjelica Rogel.52 Bursitis of Services Of MD Debby left shoulder C.M.A. S46.112A Strain of musc/fasc/tend long head of biceps, left arm, init M75.22 Bicipital tendinitis, left shoulder Office Visit 01/27/2017 8:00a Orthopedic Irvin Alva S46.011D Strain of Services Of MD [facility]by musc/tend the C.M.A. rotator cuff of right shoulder, subs Office Visit 12/16/2016 11:30a Orthopedic Irvin Alva S46.011D Strain of Services Of MD arlet Guardado/tend the C.M.A. rotator cuff of right shoulder, subs M75.41 Impingement syndrome of right shoulder Office Visit 09/13/2016 [facility] Ir[facility] Alva M77.12 Lateral 1:00p Services Of MD [facility]by epicondylitis, left C.M.A. elbow Office Visit 08/03/2016 [facility] Irvin Alva S46.011D Strain of musc/tend 8:15a Services Of MD [facility]by the rotator cuff of C.M.A. right shoulder, subs M75.41 Impingement syndrome of right shoulder Office Visit 07/13/2016 9:30a Orthopedic Irvin Alva S46.011A Strain of Services Of MD arlet Guardado/tend the C.M.A. rotator cuff of right shoulder, init M75.41 Impingement syndrome of right shoulder Plan of Treatment Future Appointment(s):11/08/2018 11:30 am - Jarad Tyler MD at [facility] Dermatology AT Ngdkhjvv54/31/2019 - Mana Torres MDE66.9 Obesity, unspecifiedReferral: [facility], EprezqpvhpjjY27.9 Nasal polyp, unspecifiedReferral:Zach Spann MD, CgjqhtljmwkfldD59.12 Post-traumatic stress disorder, chronicComments:continue clonazepam as needed
[2018-11-10 11:20] VITALS: BP 116/87
--- NOTE | 2018-11-10 12:11 | UC ---
Back Pain HPI - HPI Summary HPI Summary: 43-year-old female comes in with a chief complaint of low back pain. It's been going on for about 3 days. There was no specific injury but she has had increased activity. Pains in the low back goes into the left buttock and occasionally shoots down into the left upper leg. Pain is worse with twisting turning and bending. No weakness or numbness or difficulty controlling bowel or bladder. She did take some Advil which does help some. She feels like to some muscle spasm. - History of Current Complaint Chief Complaint: UCBackPain Stated Complaint: LOW BACK PAIN Time Seen by Provider: 11/10/18 11:17 Hx Last Menstrual Period: 11/08/18 Pain Intensity: 8 - Allergies/Home Medications Allergies/Adverse Reactions: Allergies Allergy/AdvReac Type Severity Reaction Status Date / Time bee venom protein (honey bee) Allergy Anaphylatic Verified 08/09/18 14:15 Shock squid Allergy Anaphylatic Verified 08/09/18 14:15 Shock PMH/Surg Hx/FS Hx/Imm Hx Previously Healthy: Yes - Surgical History Surgical History: Yes Surgery Procedure, Year, and Place: LEFT KNEE TIBIALOSTEOTOMY- 1988- [place]. LEFT KNEE ARTHROSCOPY- 2001, 2005- [place]. Left Total Knee replacement and Arthroplasty, 2011, [facility]. 2004 and 2009 & 06/06/2017 & TUBAL LIGATION. ROTATOR CUFF RIGHT- AUGUST 2016 - Family History Known Family History: Positive: None, Other - LUNG CANCER - Social History Alcohol Use: None Substance Use Type: None Substance Use Comment - Amount & Last Used: 1-2 GM PER WEEK-VAPING Smoking Status (MU): Former Smoker Type: Cigarettes Amount Used/How Often: APPROX 5 CIGS/DAY FOR 4 YRS Have You Smoked in the Last Year: No When Did the Patient Quit Smoking/Using Tobacco: 1999 Household Exposure Type: Cigarettes - Immunization History Most Recent Influenza Vaccination: 04/2014 Most Recent Tetanus Shot: 2011 Review of Systems All Other Systems Reviewed And Are Negative: Yes Constitutional: Positive: Negative Skin: Positive: Negative Eyes: Positive: Negative ENT: Positive: Negative Respiratory: Positive: Negative Cardiovascular: Positive: Negative Gastrointestinal: Positive: Negative Genitourinary: Positive: Negative Motor: Positive: Negative Neurovascular: Positive: Negative Musculoskeletal: Positive: Other: - SEE HPI Neurological: Positive: Negative Psychological: Positive: Negative Is Patient Immunocompromised?: No Physical Exam Triage Information Reviewed: Yes Appearance: Well-Appearing, No Pain Distress, Well-Nourished Vital Signs: Initial Vital Signs Temp 97.3 F 11/10/18 11:13 Pulse 83 11/10/18 11:13 Resp 18 11/10/18 11:13 BP 116/87 11/10/18 11:13 Pulse Ox 100 11/10/18 11:13 Vital Signs Reviewed: Yes Eye Exam: Normal Eyes: Positive: Conjunctiva Clear Neck: Positive: Supple Respiratory: Positive: Lungs clear, Normal breath sounds, No respiratory distress Abdomen Description: Negative: CVA Tenderness (R), CVA Tenderness (L) Musculoskeletal: Positive: Other: - Tender to palpation lower back on the left side and into the left buttock and the sciatic distribution. Both legs have full range of motion full-strength. No sensation deficit. Pain is worse with left hip flexion. Neurological: Positive: Alert, Muscle Tone Normal Psychological Exam: Normal Psychological: Positive: Age Appropriate Behavior Skin Exam: Normal Back Pain Course/Dx - Differential Dx/Diagnosis Provider Diagnosis: Low back pain radiating to left leg Discharge - Sign-Out/Discharge Documenting (check all that apply): Patient Departure All imaging exams completed and their final reports reviewed: No Studies - Discharge Plan Condition: Stable Disposition: HOME Prescriptions: Cyclobenzaprine TAB* [Flexeril 10 MG TAB*] 10 mg PO TID PRN #15 tab MDD 3 PRN Reason: Pain Patient Education Materials: Acute Low Back Pain (ED), Lumbar Radiculopathy (ED ), Lower Back Exercises (ED) Referrals: Ashlie Lambert MD [Primary Care Provider] - Additional Instructions: FOLLOW UP WITH YOUR DOCTOR IF NOT COMPLETELY IMPROVED. GET RECHECKED SOONER IF YOUR CONDITION WORSENS; PAIN, WEAKNESS, NUMBNESS, DIFFICULTY CONTROLLING BOWEL OR BLADDER OR ANY QUESTIONS OR CONCERNS. - Billing Disposition and Condition Condition: STABLE Disposition: Home
== END 2018-11-10 12:33 | disposition home or self-care (01) ==
LOC: UCCORT 10:39
DX: M54.5 Low back pain (principal); M54.16 Radiculopathy, lumbar region; Z91.030 Bee allergy status; Z91.013 Allergy to seafood; Z87.891 Personal history of nicotine dependence
CPT/HCPCS: 99212; G0463